=== PATIENT | female | born 1985 | race American Indian/Alaskan Native ===

== ENCOUNTER 2016-10-21 17:41 | Emergency (ER) | payer OTHER ==
--- NOTE | 2016-10-22 | Emergency Department Report ---
HPI - General Chief Complaint: Sore Throat Time Seen by Provider: 10/21/16 23:20 - HPI HPI: Patient is a 31-year-old female with no prior medical history who presents to ED complaining of throat pain 2 days. Patient describes pain as throbbing in nature, 5 out of 10 intensity, nonradiating, localized to his throat. Admits intermittent productive and nonproductive cough. Patient admits no appetite due to throat pain. Patient admits dry, nonproductive cough. Patient admits fever for the first day but not at the moment. She states she says been taking ibuprofen and that helped with the fever. Patient denies nausea/vomiting/abdominal pain/shortness of breath/chest pain/ headache and dizziness or blurred vision. ED Past Medical Hx - Past Medical History Previous Medical History?: Yes Hx Asthma: Yes - Surgical History Past Surgical History?: Yes Hx Cholecystectomy: Yes Additional Surgical History: tubal ligation - Social History Smoking Status: Never Smoker Substance Use Type: Non Opiate Pain - Medications Home Medications: Home Medications Medication Instructions Recorded Confirmed Last Taken Type Ibuprofen [Motrin] 800 mg PO Q8HR PRN #30 tablet 10/22/16 Unknown Rx guaiFENesin ER [Mucinex ER] 600 mg PO Q12H #20 tablet.er 10/22/16 Unknown Rx guaiFENesin/CODEINE [Robitussin AC] 5 ml PO TID #60 ml 10/22/16 Unknown Rx ED Review of Systems ROS: Stated complaint: SORE THROAT Other details as noted in HPI Constitutional: denies: chills, fever Eyes: denies: eye pain, eye discharge, vision change ENT: throat pain. denies: ear pain Respiratory: cough. denies: shortness of breath, wheezing Cardiovascular: denies: chest pain, palpitations Endocrine: no symptoms reported Gastrointestinal: denies: abdominal pain, nausea, vomiting, diarrhea, hematemesis Genitourinary: denies: urgency, dysuria, discharge Musculoskeletal: denies: back pain, joint swelling, arthralgia Skin: denies: rash, lesions Neurological: denies: headache, weakness, paresthesias Psychiatric: denies: anxiety, depression Hematological/Lymphatic: denies: easy bleeding, easy bruising Physical Exam - Physical Exam Vital Signs: Vital Signs 10/21/16 17:47 Temperature 98.4 F Pulse Rate 100 H Respiratory 20 Rate Blood Pressure 142/94 O2 Sat by Pulse 100 Oximetry Physical Exam: GENERAL: Alert and oriented x3, no apparent distress, Normal Gait, atraumatic. HEAD: Head is normocephalic and a-traumatic. EYES: Extra ocular muscles are intact. Pupils are equal, round, and reactive to light and accommodation. EARS: symetrical, atraumatic, non tender, ear canal clear and moderate cerumen, tympanic membrance non inflamed. gross auditory nml bilaterally. NOSE: Nose symetrical, Nontender,Nares appeared normal. MOUTH:Mouth is well hydrated and without lesions. Tonsils nonerythematous, mildly swollen without exudate, Uvula midline, Tongue not elevated. Mucous membranes are moist. Posterior pharynx clear, no exudate or lesions. Patent airways. NECK: Supple. Non edematous, No carotid bruits. No lymphadenopathy or thyromegaly. LUNGS: Symetrical with respiration, No wheezing, no rales or crackles, CTAB. HEART: S1, S2 present, regular rate and rhythm without murmur, no rubs, no gallops. ABDOMEN: No organomegaly was noted,Positive bowel sounds, soft, and non- distended. . Nontender to palpation on all Quadrants, NO CVA tenderness. EXTREMITIES/MUSCULOSKELETAL: No cyanosis, clubbing, rash, lesions or edema. Full ROM bilaterally. UE/LE Pulses 2+ bilaterally. NEUROLOGIC: No focal Deficit, Cranial nerves II through XII are grossly intact. No loss of sensation, PSYCHIATRIC: Mood is congruent with affect, denies suicidal or homicidal ideations. SKIN: Warm and dry, No lesions, No ulceration or induration present. ED Course Vital Signs 10/21/16 17:47 Temperature 98.4 F Pulse Rate 100 H Respiratory 20 Rate Blood Pressure 142/94 O2 Sat by Pulse 100 Oximetry ED Medical Decision Making - Medical Decision Making 31-year-old female presents with flulike symptoms. ED course: Patient received Robitussin, Motrin, prednisone ED. Discussed with patient to increase fluids and symptomatic relief. Discussed the findings remained supposed to be needed. Discussed the follow-up Department care physician discussed home medication of Motrin ,cough suppressant and a decongestant Vital signs are stable. Patient is in no acute respiratory distress. Patient frankly states that she understands instructions given and follow-up as needed. Critical care attestation.: If time is entered above; I have spent that time in minutes in the direct care of this critically ill patient, excluding procedure time. ED Disposition Clinical Impression: Flu-like symptoms URI (upper respiratory infection) Qualifiers: URI type: unspecified URI Qualified Code(s): J06.9 - Acute upper respiratory infection, unspecified Disposition: DISCHARGED TO HOME OR SELFCARE Is pt being admited?: No Does the pt Need Aspirin: No Condition: Stable Instructions: Upper Respiratory Infection (ED), Pharyngitis (ED), Influenza (ED ) Additional Instructions: Increase fluids. Takes vitamins daily. Follow-up with the primary care physician. Prescriptions: guaiFENesin ER [Mucinex ER] 600 mg PO Q12H #20 tablet.er guaiFENesin/CODEINE [Robitussin AC] 5 ml PO TID #60 ml Ibuprofen [Motrin] 800 mg PO Q8HR PRN #30 tablet PRN Reason: Pain Referrals: SUNI WARD MD [Primary Care Provider] - 3-5 Days Forms: Work/School Release Form(ED) Time of Disposition: 00:06
[2016-10-22] MEDS ORDERED: MOTRIN PO ONE (00:01)
[2016-10-22] MEDS ORDERED: DELTASONE PO ONE (00:01)
[2016-10-22] MEDS ORDERED: ROBITUSSIN PO ONE (00:02)
[2016-10-22 00:57] VITALS: BP 132/89
== END 2016-10-22 01:09 | disposition home or self-care (01) ==
LOC: ED 17:41
DX: J11.1 Influenza due to unidentified influenza virus with other respiratory manifestations (principal); J06.9 Acute upper respiratory infection, unspecified; J45.909 Unspecified asthma, uncomplicated
CPT/HCPCS: 99282; J7512

== ENCOUNTER 2018-01-06 15:28 | Emergency (ER) | payer SELFPAY ==
[2018-01-06 16:04] VITALS: BP 115/80
[2018-01-06 17:02] LABS: Hematocrit 43.5 % (30.3-42.9); Hemoglobin 14.2 gm/dl (10.1-14.3); Mean Corpuscular HGB Conc 33 % (30-34); Mean Corpuscular Hemoglobin 31 pg (28-32); Mean Corpuscular Volume 96 fl (79-97); Platelet Count 305 K/mm3 (140-440); Red Blood Count 4.54 M/mm3 (3.65-5.03); Red Cell Distribution Width 13.3 % (13.2-15.2)
[2018-01-06 17:08] LABS: Alanine Aminotransferase 12 units/L (7-56); Albumin 4.4 g/dL (3.9-5); BUN/Creatinine Ratio 13; Blood Urea Nitrogen 9 mg/dL (7-17); Calcium 9.1 mg/dL (8.4-10.2); Hemolysis Index 60
[2018-01-06 18:13] LABS: Bacteria,Urine 1+ /HPF (Negative); Bilirubin,Urine NEG (Negative); Blood,Urine NEG (Negative); Color,Urine Yellow (Yellow); Mucus,Urine FEW /HPF; Protein,Urine <15 mg/dL mg/dL (Negative)
== END 2018-01-06 23:37 | disposition left against medical advice (07) ==
LOC: ED 15:28
DX: R19.7 Diarrhea, unspecified (principal); Z53.21 Procedure and treatment not carried out due to patient leaving prior to being seen by health care provider
CPT/HCPCS: 36415; 80053; 81001; 85025